=== PATIENT | female | born 1930 | race Caucasian/White ===

== ENCOUNTER 2016-06-26 10:10 | Emergency (ER) | payer MEDICARE ==
[2016-06-26 10:53] LABS: EOSINOPHILS# 0.1 X 10^3uL (0.0-0.4); LYMPHOCYTES# 0.8 X 10^3uL (0.8-3.8); MONOCYTES# 0.6 X 10^3uL (0.2-1.0)
[2016-06-26 11:01] LABS: BASOPHIL# 0.2 X 10^3uL (0.0-0.1); BASOPHILS 2.2 % (0.0-2.0); EOSINOPHILS 0.9 % (0.0-6.0); HEMATOCRIT 43.5 % (36.0-48.0); LYMPHOCYTES 10.7 % (20.0-40.0); MEAN CELL VOLUME 88.6 fL (80.0-100.0); MEAN CORPUS. HGB CONCENTRATION 34.6 g/dL (32.0-36.0); MEAN CORPUSCULAR HEMOGLOBIN 30.6 pg (29.0-35.0); MEAN PLATELET VOLUME 9.3 fL (7.4-10.4); MONOCYTES 8.4 % (2.0-10.0); NEUTROPHILS 77.8 % (54.0-75.0); NEUTROPHILS# 5.7 X 10^3uL (2.6-6.7); PLATELET COUNT 242 X 10^3uL (130-440); RED BLOOD COUNT 4.91 X 10^6uL (4.20-6.10); RED CELL DISTRIBUTION WIDTH 14.1 % (11.5-14.5); WHITE BLOOD COUNT 7.4 X 10^3uL (3.9-10.7)
[2016-06-26 11:07] LABS: BLOOD UREA NITROGEN 9 mg/dL (7-17); CHLORIDE 104 mmol/L (98-107); CREATININE 0.7 mg/dL (0.5-1.0); GLUCOSE 85 mg/dL (70-100); MAGNESIUM 2.2 mg/dL (1.6-2.3); POTASSIUM 3.6 mmol/L (3.5-5.1); SODIUM 135 mmol/L (137-145)
[2016-06-26 11:19] LABS: TROPONIN I < 0.012 ng/mL (0.00-0.034)
--- NOTE | 2016-06-26 11:54 | ER NURSING DOCUMENTATION ---
Nurse's Notes [facility] Name:Margo Odom Age:85 yrs Sex:Female :1930 Arrival Date:06/26/2016 Time:10:10 BedTrauma A Private MD:Britta Parra Diagnosis:Chest Pain Presentation: 06/26 10:18 Acuity: SOCORRO 2 st 10:34 Presenting complaint: Patient states: Pt describes intermittent left sided chest pain, ma under left breast Denies radiation , sweating or nausea Began Friday night and has been intermittent. Transition of care: Home. 10:34 Method Of Arrival: Private Vehicle ma 11:52 Asprin Given Given in ED. ma Triage Assessment: 10:11 General: Appears in no apparent distress, comfortable, well groomed, Behavior is ma cooperative. Pain: Complains of pain in left breast Pain does not radiate. Pain currently is 3 out of 10 on a pain scale. Quality of pain is described as aching, Pain began 2-3 days ago Alleviated by nothing. Cardiovascular: Rhythm is sinus rhythm. Historical: - Allergies: PENICILLINS; SULFA (SULFONAMIDES); - PMHx: GLAUCOMA; diverticulosis; Untreated hypertension; Lower GI Bleeding (January 13, 2014); Diverticulosis; - PSHx: NONE; - Tetanus: unknown. - Ebola Screening: : No symptoms or risks identified at this time. . - Immunization history: Flu Vaccine unknown. - Social history: Smoking status: Patient states was never smoker of tobacco. Patient uses alcohol on a daily basis. Screenin:39 Infectious Disease Risk None. Abuse screen: Denies threats or abuse. Nutritional ma screening: No deficits noted. Assessment: 11:48 Reassessment: Patient states symptoms have improved. Patient appears in no apparent ma distress at this time. Vital Signs: 10:10 BP 182 / 99; Pulse 72; Resp 22; Temp 99.0; Pulse Ox 96% on R/A; Weight 44.91 kg; Height ma 5 ft. 0 in. (152.40 cm); Pain 3/10; 10:49 BP 168 / 84; Pulse 71; Resp 17 S; Pulse Ox 93% ; ma 11:00 BP 176 / 79; Pulse 69; Resp 14; Pulse Ox 96% ; Pain 3/10; ma 11:15 BP 188 / 101; Pulse 73; Resp 17; Pulse Ox 94% ; ma 11:30 BP 172 / 85; Pulse 68; Resp 26; Pulse Ox 94% on R/A; ma 10:10 Body Mass Index 19.33 (44.91 kg, 152.40 cm) wy ED Course: 10:10 Valuables Given to family. Patient has correct armband on for positive identification. ma Placed in gown. Bed in low position. Call light in reach. Side rails up X2. 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 Pulse ox on. NIBP on. 10:10 Inserted peripheral IV: 20 gauge in left antecubital area saline lock: 20 gauge in left ma and blood collected. 10:11 Patient arrived in ED. ds 10:11 Britta Parra MD is Private Physician. kortney 10:11 Antonio Patel MD is Attending Physician. mayra 10:16 EKG done. (by ED staff). Reviewed by Antonio Patel MD. ma 10:[address] 10:34 Liana Delarosa RN is Primary Nurse. ma 10:39 Port Xray Completed. ana cristina 10:57 EKG attached ma 11:32 Alexandro Miner MD is Referral Physician. 11:53 Discontinued IV intact, bleeding controlled, pressure dressing applied, No ma redness/swelling at site. Administered Medications: 10:40 Drug: Aspirin Chewable Tablet 324 mg; Route: PO; ma 11:53 Follow up: Response: No adverse reaction wy Outcome: 11:33 Discharge ordered by . 11:52 Discharged to home wy 11:52 Condition: stable 11:52 Discharge instructions given to patient, friend, Instructed on discharge instructions, follow up and referral plans. Demonstrated understanding of instructions. 11:54 Patient left the ED. wy 06/27 09:41 Discharge F/U Call: Spoke with: patient. Are you having any pain? yes. Pain level is lp 2 / 10 Location and description of pain: Chest wall pain. How are you managing your pain? Patient is taking medication: Tylenol Heat/Ice Signatures: Anat Christopher RN RN st Abuso, Melanie, Ana Mendez RN, ma, RN RN lp Srot, Jeanie, Reg Reg Antonio Clark MD MD jm Abbott, Laura lea
--- NOTE | 2016-06-26 11:54 | ER PHYSICIAN DOCUMENTATION ---
Physician Documentation [facility] Name:Margo Odom Age:85 yrs Sex:Female :1930 Arrival Date:06/26/2016 Time:10:10 BedTrauma A Private MD:Britta Parra ED, John Disposition: 06/26/16 11:33 Discharged to Home/Self Care. Impression: Chest Pain. - Condition is Good. - Discharge Instructions: CHEST PAIN, Uncertain Cause. - Medical Reconciliation form form. - Follow up: Alexandro Miner MD; When: Friday at 11am for a stress test; Reason: Recheck today's complaints. - Problem is new. - Symptoms have improved. HPI: 06/26 11:00 This 85 yrs old Female presents to ER via Private Vehicle with complaints of jm Chest Pain. 11:00 The patient or guardian reports chest pain that is located primarily in the anterior jm chest wall. Onset: 11 hour(s) ago. The pain does not radiate. There has been no movement of pain. Associated signs and symptoms: Pertinent positives: dizziness. The chest pain is described as dull, a heaviness. Duration: The patient or guardian reports a single episode, that is still ongoing. Modifying factors: the symptoms are aggravated by nothing. Severity of pain: in the emergency department the pain is a 4 / 10. This patient does not have any risk factors related to chest pain. The patient has not experienced similar symptoms in the past. The patient has not recently seen a physician. Pt has been dealing w on and off CP for the past 2 days, but it has been constant since midnight. . Historical: - Allergies: PENICILLINS; SULFA (SULFONAMIDES); - PMHx: GLAUCOMA; diverticulosis; Untreated hypertension; Lower GI Bleeding (January 13, 2014); Diverticulosis; - PSHx: NONE; - Tetanus: unknown. - Ebola Screening: : No symptoms or risks identified at this time. . - Immunization history: Flu Vaccine unknown. - Social history: Smoking status: Patient states was never smoker of tobacco. Patient uses alcohol on a daily basis. ROS: 11:00 Cardiovascular: Positive for chest pain. jm 11:00 Respiratory: Negative for shortness of breath. 11:00 Neuro: Positive for dizziness. 11:00 All other systems are negative. Exam: 11:00 Constitutional: The patient appears alert, awake. 11:00 Eyes: Periorbital structures: appear normal, Conjunctiva: normal. 11:00 ENT: Mouth: is normal, Voice: is normal. 11:00 Neck: C-spine: appears grossly normal, Trachea: is midline with no obvious abnormalities. 11:00 Cardiovascular: Rate: normal, Rhythm: regular. 11:00 Respiratory: the patient does not display signs of respiratory distress, Respirations: normal, Breath sounds: are normal. 11:00 Abdomen/GI: Bowel sounds: normal, Palpation: abdomen is soft and non-tender. 11:00 Musculoskeletal/extremity: DVT Exam: No signs of deep vein thrombosis. Calves: are non-tender. 11:00 Skin: Appearance: Color: normal in color, pink, no rash present. 11:00 Neuro: Mentation: is normal, Gait: is steady. 11:00 Psych: Behavior/mood is pleasant, cooperative, Affect is calm. Vital Signs: 10:10 BP 182 / 99; Pulse 72; Resp 22; Temp 99.0; Pulse Ox 96% on R/A; Weight 44.91 kg; Height ma 5 ft. 0 in. (152.40 cm); Pain 3/10; 10:49 BP 168 / 84; Pulse 71; Resp 17 S; Pulse Ox 93% ; ma 11:00 BP 176 / 79; Pulse 69; Resp 14; Pulse Ox 96% ; Pain 3/10; ma 11:15 BP 188 / 101; Pulse 73; Resp 17; Pulse Ox 94% ; ma 11:30 BP 172 / 85; Pulse 68; Resp 26; Pulse Ox 94% on R/A; ma 10:10 Body Mass Index 19.33 (44.91 kg, 152.40 cm) me MDM: 10:11 Patient medically screened. 10:57 EKG attached me 11:00 Differential diagnosis: acute myocardial infarction, acute pericarditis, anxiety, chest jm wall pain. Patient took aspirin. Data reviewed: vital signs, nurses notes, old medical records, lab test result(s), EKG, radiologic studies, and as a result, I will discharge patient. Test interpretation: by ED physician or midlevel provider: plain radiologic studies, ECG. 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 ECG:. ED course: Unsure of exact cause of CP, but will have pt stressed on Friday. Dr. Parra updated on plan and agrees. DC home. 06/26 11:02 Order name: CBC AUTO DIF, MDIF/RMOR IF IND; Complete Time: : EDSD 06/26 11:12 Order name: BASIC METABOLIC PANEL; Complete Time: EDSD 06/26 11:12 Order name: MAGNESIUM; Complete Time: EDSD 06/26 11:20 Order name: TROPONIN I; Complete Time: [facility] 06/26 10:25 Order name: 12-lead EKG; Complete Time: 10:48 06/26 10:25 Order name: Iv Saline Lock; Complete Time: 10:48 06/26 10:25 Order name: Place Patient On Monitor; Complete Time: 10:48 06/26 10:25 Order name: Pulse Ox Continuous; Complete Time: 10:48 EC:00 Rhythm is regular. QRS [place] is Normal. QT interval is normal. No Q waves. T waves are jm Normal. No ST changes noted. Dispensed Medications: 10:40 Drug: Aspirin Chewable Tablet 324 mg; Route: PO; ma 11:53 Follow up: Response: No adverse reaction ma Signatures: Liana Delarosa, RN RN Antonio Morris MD MD jm
--- NOTE | 2016-06-26 14:33 | RADIOLOGY REPORT ---
A limited single portable view of the chest, without prior films for comparison , demonstrates the heart and vessels to be unremarkable. The lung rothman are clear. No infiltrate, fluid or pneumothorax is seen. IMPRESSION: Unremarkable limited single portable view of the chest. MTDD
== END 2016-06-26 11:54 | disposition home or self-care (01) ==
LOC: ER 10:10
DX: R07.9 Chest pain, unspecified (principal); R42 Dizziness and giddiness; E87.1 Hypo-osmolality and hyponatremia; I10 Essential (primary) hypertension
CPT/HCPCS: 71010; 80048; 83735; 84484; 85025; 93005; 93010; 99284; 99285

== ENCOUNTER 2016-08-02 23:36 | Emergency (ER) | payer MEDICARE ==
[2016-08-03 00:24] LABS: BASOPHIL# 0.1 X 10^3uL (0.0-0.1); BASOPHILS 1.1 % (0.0-2.0); EOSINOPHILS 1.1 % (0.0-6.0); EOSINOPHILS# 0.1 X 10^3uL (0.0-0.4); HEMOGLOBIN 14.4 g/dL (12.0-16.0); LYMPHOCYTES 14.9 % (20.0-40.0); LYMPHOCYTES# 1.1 X 10^3uL (0.8-3.8); MEAN CELL VOLUME 88.4 fL (80.0-100.0); MEAN CORPUS. HGB CONCENTRATION 34.3 g/dL (32.0-36.0); MEAN CORPUSCULAR HEMOGLOBIN 30.3 pg (29.0-35.0); MEAN PLATELET VOLUME 8.2 fL (7.4-10.4); MONOCYTES# 0.7 X 10^3uL (0.2-1.0); NEUTROPHILS 72.9 % (54.0-75.0); NEUTROPHILS# 5.4 X 10^3uL (2.6-6.7); PLATELET COUNT 233 X 10^3uL (130-440); RED BLOOD COUNT 4.76 X 10^6uL (4.20-6.10); RED CELL DISTRIBUTION WIDTH 13.4 % (11.5-14.5); WHITE BLOOD COUNT 7.4 X 10^3uL (3.9-10.7)
[2016-08-03 00:35] LABS: BLOOD UREA NITROGEN 9 mg/dL (7-17); CALCIUM 9.3 mg/dL (8.4-10.2); CHLORIDE 97 mmol/L (98-107); CREATININE 0.7 mg/dL (0.5-1.0); GLUCOSE 95 mg/dL (70-100); MAGNESIUM 2.1 mg/dL (1.6-2.3); POTASSIUM 3.5 mmol/L (3.5-5.1); SODIUM 129 mmol/L (137-145)
[2016-08-03 00:48] LABS: TROPONIN I < 0.012 ng/mL (0.00-0.034)
[2016-08-03] MEDS ORDERED: NORMAL SALINE 500 ML IV ONE (01:03)
--- NOTE | 2016-08-03 01:22 | ER PHYSICIAN DOCUMENTATION ---
Physician Documentation [facility] Name:Margo Odom Age:85 yrs Sex:Female :1930 Arrival Date:08/02/2016 Time:23:36 Bed4 Private MD:Britta Parra ED, Scott Disposition: 08/03/16 00:32 Discharged to Home/Self Care. Impression: Hypertension, Hyponatremia. - Condition is Good. - Discharge Instructions: HYPERTENSION, Established. - Medical Reconciliation form form. - Follow up: Britta Parra MD; When: As needed; Reason: Worsening of condition, Recheck today's complaints, Continuance of care. - Problem is new. - Symptoms have improved. HPI: 08/03 00:04 This 85 yrs old Female presents to ER with complaints of Blood Pressure sc Problem. 00:29 worried about a lot of things, kept checking bp which increased and then had jaw ache sc at 1830 which is gone now, nl stress test last month, no n/v/sob/diaphoresis. Onset: The symptom(s)/episode began/occurred 5 hour(s) ago. Severity of symptoms: At their worst the symptoms were mild. The patient has experienced similar episodes in the past, a few times. Historical: - Allergies: PENICILLINS; SULFA (SULFONAMIDES); - Home Meds: 1. losartan oral - PMHx: Hypertension; - PSHx: None; - Tetanus: < 10 years. - Ebola Screening: : Patient denies exposure to infectious person. Patient denies travel to an Ebola-affected area in the 21 days before illness onset. . - Immunization history: Flu Vaccine < 1 year. - Social history: Smoking status: Patient states was never smoker of tobacco. Patient uses alcohol only on a social basis. ROS: 00:30 Eyes: Negative for injury, pain, redness, and discharge. sc ENT: Negative for injury, pain, and discharge. Neck: Negative for injury, pain, and swelling. Back: Negative for injury and pain. MS/Extremity: Negative for injury and deformity. Skin: Negative for injury, rash, and discoloration. 00:30 Neuro: Negative for headache, weakness, numbness, tingling, and seizure. sc 00:30 Constitutional: Negative for body aches, fever, malaise. 00:30 Cardiovascular: Negative for chest pain, edema, orthopnea, palpitations. 00:30 Respiratory: Negative for dyspnea on exertion. 00:30 Abdomen/GI: Negative for abdominal pain, nausea, vomiting. Exam: Constitutional: This is a well developed, well nourished patient who is awake, alert, and in no acute distress. Head/Face: Normocephalic, atraumatic. Eyes: Pupils equal round and reactive to light, extra-ocular motions intact. Lids and lashes normal. Conjunctiva and sclera are non-icteric and not injected. Cornea within normal limits. Periorbital areas with no swelling, redness, or edema. ENT: Nares patent. No nasal discharge, no septal abnormalities noted. Tympanic membranes are normal and external auditory canals are clear. Oropharynx with no redness, swelling, or masses, exudates, or evidence of obstruction, uvula midline. Mucous membranes moist. Neck: Trachea midline, no thyromegaly or masses palpated, and no cervical lymphadenopathy. Supple, full range of motion without nuchal rigidity, or vertebral point tenderness. No meningismus. Chest/axilla: Normal chest wall appearance and motion. Nontender with no deformity. No lesions are appreciated. Cardiovascular: Regular rate and rhythm with a normal S1 and S2. No gallops, murmurs, or rubs. Normal PMI, no JVD. No pulse deficits. Respiratory: Lungs have equal breath sounds bilaterally, clear to auscultation and percussion. No rales, rhonchi or wheezes noted. No increased work of breathing, no retractions or nasal flaring. Abdomen/GI: Soft, non-tender, with normal bowel sounds. No distension or tympany. No guarding or rebound. No evidence of tenderness throughout. Back: No spinal tenderness. No costovertebral tenderness. Full range of motion. 00:31 Skin: Warm, dry with normal turgor. Normal color with no rashes, no lesions, and no sc evidence of cellulitis. 00:31 Psych: Behavior/mood is anxious. 00:32 Constitutional: The patient appears in no acute distress. sc 00:32 Cardiovascular: Exam negative for acute changes, Rate: normal, Rhythm: regular. 00:32 Respiratory: Respirations: normal, Breath sounds: are normal, clear throughout. 00:32 Abdomen/GI: Bowel sounds: normal, Palpation: abdomen is soft and non-tender. Vital Signs: 00:10 BP 172 / 82; Pulse 65; Resp 14; Pulse Ox 92% on R/A; Pain 0/10; lb 00:56 BP 170 / 80; Pulse 61; Resp 16; Pulse Ox 98% on NC; Pain 0/10; lb 01:21 BP 170 / 80; Pulse 64; Resp 16; Pulse Ox 96% on R/A; Pain 0/10; lb MDM: 00:04 Patient medically screened. ks 00:31 Differential Diagnosis bp vs angina vs toothach vs tmj from stress and worry. Data sc reviewed: vital signs, nurses notes, lab test result(s), EKG, and as a result, I will continue to observe the patient. Counseling: I had a detailed discussion with the patient and/or guardian regarding: the historical points, exam findings, and any diagnostic results supporting the discharge/admit diagnosis, lab results, the need for outpatient follow up, to return to the emergency department if symptoms worsen or persist or if there are any questions or concerns that arise at home. 04:18 EKG attached 08/03 00:37 Order name: CBC AUTO DIF, MDIF/RMOR IF IND; Complete Time: 00:48 EDMS 08/03 00:48 Interpretation: Normal. ks 08/03 00:38 Order name: BASIC METABOLIC PANEL; Complete Time: 00:48 EDMS 08/03 00:48 Interpretation: Normal Except: SODIUM 129. ks 08/03 00:38 Order name: MAGNESIUM; Complete Time: 00:48 EDVT 08/03 00:48 Interpretation: Normal. ks 08/03 00:48 Order name: TROPONIN I; Complete Time: 00:49 EDMS 08/03 00:48 Interpretation: Normal. ks 08/02 23:58 Order name: 12-lead EKG; Complete Time: 23:58 lb 08/02 23:58 Order name: Iv Saline Lock; Complete Time: 00:08 lb 08/02 23:58 Order name: Place Patient On Monitor; Complete Time: 00:08 lb 08/02 23:58 Order name: Pulse Ox Continuous; Complete Time: 23:58 lb Dispensed Medications: 00:56 Drug: NS 0.9% 500 ml; Route: IV; Rate: bolus; Site: left antecubital; lb 01:20 Follow up: IV Status: Completed infusion; IV Intake: 500ml lb Signatures: Jeb Negron MD MD sc Bollock, Lynda lb
--- NOTE | 2016-08-03 01:22 | ER NURSING DOCUMENTATION ---
Nurse's Notes [facility] Name:Margo Odom Age:85 yrs Sex:Female :1930 Arrival Date:08/02/2016 Time:23:36 Bed4 Private MD:Britta Parra Diagnosis:Hypertension;Hyponatremia Presentation: 08/02 23:55 Acuity: SOCORRO 3 lb 08/03 00:08 Presenting complaint: Patient states: left lower jaw pain started at 7pm with lb dizziness, feels off balance. denies chest pain. Transition of care: Home. Notified ED Physician of Dr. Negron notified. Care prior to arrival: Medication(s) given: ASA. 00:08 Method Of Arrival: Walk In lb Triage Assessment: 00:10 General: Appears in no apparent distress, Behavior is appropriate for age, pleasant. lb Pain: Denies pain. Cardiovascular: Rhythm is sinus rhythm. Historical: - Allergies: PENICILLINS; SULFA (SULFONAMIDES); - Home Meds: 1. losartan oral - PMHx: Hypertension; - PSHx: None; - Tetanus: < 10 years. - Ebola Screening: : Patient denies exposure to infectious person. Patient denies travel to an Ebola-affected area in the 21 days before illness onset. . - Immunization history: Flu Vaccine < 1 year. - Social history: Smoking status: Patient states was never smoker of tobacco. Patient uses alcohol only on a social basis. Screenin:11 Infectious Disease Risk None. Abuse screen: Denies threats or abuse. Denies injuries lb from another. Nutritional screening: No deficits noted. Assessment: 00:11 See Triage Assessment done by same RN. lb Vital Signs: 00:10 BP 172 / 82; Pulse 65; Resp 14; Pulse Ox 92% on R/A; Pain 0/10; lb 00:56 BP 170 / 80; Pulse 61; Resp 16; Pulse Ox 98% on NC; Pain 0/10; lb 01:21 BP 170 / 80; Pulse 64; Resp 16; Pulse Ox 96% on R/A; Pain 0/10; lb ED Course: 08/02 23:37 Patient arrived in ED. ma1 23:37 Britta Parra MD is Private Physician. ma1 23:55 Malissa Ji is Primary Nurse. 23:57 Triage completed. 08/03 00:04 Jeb Negron MD is Attending Physician. sc 00:11 Valuables Remains with patient Patient has correct armband on for positive lb identification. Placed in gown. Bed in low position. Call light in reach. Side rails up X 1. 00:11 Inserted peripheral IV: 20 gauge in left antecubital area and blood collected. lb 00:12 EKG done per protocol. Performed by ED Staff. Labs ordered per protocol. Drawn by ED lb staff. 00:32 Britta Parra MD is Referral Physician. sc 04:18 EKG attached lb Administered Medications: 00:56 Drug: NS 0.9% 500 ml; Route: IV; Rate: bolus; Site: left antecubital; lb 01:20 Follow up: IV Status: Completed infusion; IV Intake: 500ml lb Intake: 01:20 IV: 500ml; Total: 500ml. lb Outcome: 00:32 Discharge ordered by . sc 01:21 Discharged to home ambulatory. lb 01:21 Condition: good 01:21 Discharge Assessment: Patient awake, alert and oriented x 3. No cognitive and/or functional deficits noted. Patient verbalized understanding of disposition instructions. 01:21 Instructed on discharge instructions, follow up and referral plans. 01:21 IV D/Fabian 01:21 Patient left the ED. lb 10:27 Discharge F/U Call: Spoke with: patient. What is the one thing you feel we could do mk2 to improve? Patient's answer: yes. will follow up with primary. Signatures: Jeb Negron MD MD sc Kruger, Meg, RN RN mk2 Malissa Ji Melissa ma1
== END 2016-08-03 01:22 | disposition home or self-care (01) ==
LOC: ER 23:36
DX: I10 Essential (primary) hypertension (principal); E87.1 Hypo-osmolality and hyponatremia; R68.84 Jaw pain; R94.31 Abnormal electrocardiogram [ECG] [EKG]; Z79.899 Other long term (current) drug therapy
CPT/HCPCS: 80048; 83735; 84484; 85025; 93005; 99284; J7040